=== PATIENT | male | born 1980 | race Caucasian/White ===

== ENCOUNTER 2021-02-18 21:00 | Emergency (ER) | payer BC ==
[~2021-02-18] VITALS: Ht 167.6 cm; Wt 102.3 kg
[2021-02-18] MEDS ORDERED: ZESTRIL10 M1 PO (21:18)
[2021-02-18] MEDS ORDERED: METFORMIN ER500 MG PO (21:18)
[2021-02-18] MEDS ORDERED: LIPITOR20 M2 PO (21:19)
[2021-02-18 22:34] LABS: POTASSIUM 4.1 mmol/L (3.5-5.1)
[2021-02-18 22:35] LABS: CALCIUM 9.5 mg/dL (8.3-10.5)
[2021-02-18 23:29] VITALS: BP 145/92
== END 2021-02-18 23:29 | disposition home or self-care (01) ==
LOC: ED 21:00
PROVIDERS: Family Medicine
DX: I10 Essential (primary) hypertension (principal); E11.65 Type 2 diabetes mellitus with hyperglycemia; E78.5 Hyperlipidemia, unspecified; Z79.84 Long term (current) use of oral hypoglycemic drugs; Z79.899 Other long term (current) drug therapy
CPT/HCPCS: J1885; J2360